=== PATIENT | male | born 1960 | race Hispanic/Latino ===

== ENCOUNTER 2016-10-15 18:58 | Emergency (ER) | payer SELFPAY ==
[~2016-10-15] VITALS: Ht 165.1 cm; Wt 68.0 kg
[2016-10-15 19:23] VITALS: BP 145/74
[2016-10-15 21:31] VITALS: BP 133/86
[2016-10-15 21:33] VITALS: BP 133/86
--- NOTE | 2016-10-19 17:01 | Emergency Room Report ---
History of Present Illness General Chief Complaint: Pain Source: Patient Present Illness HPI 56YOM BIBEMS for acute ETOH intoxication Found on local street corner + AOB, bottles nearby Atraumatic Patient c/o alcohol intoxication Allergies: Coded Allergies: No Known Allergies (Unverified , 10/15/16) Patient History Past Medical History: none Past Surgical History: none Pertinent Family History: none Social History: Reports: alcohol use Immunizations: UTD Reviewed Nursing Documentation: PMH: Agreed, PSxH: Agreed Nursing Documentation-PMH Hx Hypertension: Yes Review of Systems All Other Systems: negative except mentioned in HPI Physical Exam Vital Signs Date Time Temp Pulse Resp B/P Pulse Ox O2 Delivery O2 Flow Rate FiO2 10/15/16 18:54 98.2 120 22 145/74 98 Room Air Sp02 EP Interpretation: reviewed, normal General Appearance: normal inspection, well appearing, no apparent distress, alert, GCS 15 Head: normocephalic, atraumatic Eyes: bilateral eye EOMI, bilateral eye PERRL ENT: normal ENT inspection, hearing grossly normal, normal voice Neck: normal inspection, full range of motion, supple, no bony tend Respiratory: normal inspection, lungs clear, normal breath sounds, no respiratory distress, no retraction, no wheezing Cardiovascular #1: regular rate, rhythm, no edema Gastrointestinal: normal inspection, normal bowel sounds, non tender, soft, no guarding, no hernia Genitourinary: no CVA tenderness Musculoskeletal: normal inspection, back normal, normal range of motion, Noe' s Sign negative Neurologic: normal inspection, alert, oriented x3, responsive, 21 dealer III-XII nml as tested, motor strength/tone normal, speech normal Psychiatric: normal inspection, judgement/insight normal, mood/affect normal Skin: normal inspection, normal color, no rash Lymphatic: normal inspection Medical Decision Making Diagnostic Impression: Primary Impression: Alcohol intoxication Qualified Codes: F10.920 - Alcohol use, unspecified with intoxication, uncomplicated ER Course Acute ETOH intoxcation VSS. 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 Oct 19, 2016 17:01
== END 2016-10-15 21:33 | disposition home or self-care (01) ==
LOC: EDBD 18:58 → EMR 19:35
DX: F10.920 Alcohol use, unspecified with intoxication, uncomplicated (principal); I10 Essential (primary) hypertension
CPT/HCPCS: 99282